=== PATIENT | female | born 1955 | race African-American/Black ===

== ENCOUNTER 2017-12-27 11:05 | Inpatient (IN) | payer MEDICARE ==
[~2017-12-27] VITALS: Ht 160 cm; Wt 70.3 kg
[2017-12-27 13:16] LABS: BASOPHILS % 0.6 % (0.0-2.0); EOSINOPHILS % 0.1 % (0.0-5.0); HEMATOCRIT. 23.9 % (36.0-48.0); HEMOGLOBIN. 7.4 g/dL (12.0-16.0); LYMPHOCYTES % 18.5 % (20.0-50.0); MEAN CORPUSCULAR HEMOGLOBIN 23.8 pg (28.0-32.0); MEAN CORPUSCULAR VOLUME 77.4 fL (81.0-99.0); MEAN PLATELET VOLUME 7.5 fl (7.4-10.4); MONOCYTES % 11.7 % (2.0-8.0); NEUTROPHILS % 69.1 % (40.0-76.0); PLATELET 325 x1000/uL (130-400); RED BLOOD CELL COUNT 3.09 mill/uL (4.2-5.4); RED CELL DISTRIBUTION WIDTH 20.3 % (11.6-14.6)
[2017-12-27 13:20] LABS: INR 1.1; PROTHROMBIN TIME 11.6 sec (9.4-11.6)
[2017-12-27 13:24] LABS: CHLORIDE 96 mEq/L (98-107)
[2017-12-27 13:30] LABS: TROPONIN I 0.04 ng/mL (0.00-0.04)
[2017-12-27] MEDS ORDERED: HYDROCODONE/ACETAMINOPHEN 5/325MG TABLET PO PRN (14:30)
[2017-12-27] MEDS ORDERED: CLONIDINE 0.1MG TABLET PO PRN (14:30)
[2017-12-27] MEDS ORDERED: IPRATROPIUM/ALBUTEROL 0.5-3(2.5)MG/3ML NEB HHN PRN (14:30)
[2017-12-27] MEDS ORDERED: DIPHENHYDRAMINE 50MG/ML VIAL IV PRN (14:30)
[2017-12-27 16:00] VITALS: BP 170/82
[2017-12-27] MEDS ORDERED: NIFEDIPINE XL 30MG TAB PO SCH (17:00)
[2017-12-27] MEDS ORDERED: ASPIRIN 81MG TABLET PO NR (17:15)
[2017-12-27] MEDS: PREDNISONE 20MG TABLET PO SCH ×2 (17:15→18:19)
[2017-12-27 17:17] VITALS: BP 169/90
[2017-12-27] MEDS: SEVELAMER CARBONATE 800 MG TABLET PO SCH (18:20)
[2017-12-27] MEDS ORDERED: ACETAMINOPHEN 325MG TABLET PO PRN (20:15)
[2017-12-27 20:38] VITALS: BP 187/89
[2017-12-27] MEDS ORDERED: EPOETIN ALFA 10000UNITS/ML VIAL SUBCUT SCH (21:00)
[2017-12-27 23:44] VITALS: BP 168/75
[2017-12-28] MEDS ORDERED: CARV12.545 PO (03:59)
[2017-12-28 04:00] VITALS: BP 168/82
[2017-12-28] MEDS ORDERED: P20 PO (04:08)
[2017-12-28] MEDS ORDERED: TORS20TA4 PO (04:08)
[2017-12-28] MEDS ORDERED: LOSA100T14 PO (04:08)
[2017-12-28] MEDS ORDERED: SEVE800T8 PO (04:08)
[2017-12-28] MEDS ORDERED: PROG1 PO (04:08)
[2017-12-28] MEDS ORDERED: OMEP20CA10 PO (04:08)
[2017-12-28] MEDS ORDERED: ASPI-1159 PO (04:08)
[2017-12-28 06:55] LABS: HEMATOCRIT 26.4 % (36.0-48.0); HEMOGLOBIN 8.3 g/dL (12.0-16.0); MEAN CORPUSCULAR HEMOGLOBIN 24.8 pg (28.0-32.0); MEAN CORPUSCULAR VOLUME 78.4 fL (81.0-99.0); PLATELET 310 x1000/uL (130-400); RED BLOOD CELL COUNT 3.37 mill/uL (4.2-5.4)
[2017-12-28] MEDS ORDERED: OMEPRAZOLE 20MG CAPSULE EXTENDED RELEASE PO SCH (07:40)
[2017-12-28 08:00] VITALS: BP 164/89
[2017-12-28 08:44] LABS: TROPONIN I 0.04 ng/mL (0.00-0.04)
[2017-12-28] MEDS ORDERED: LOSARTAN POTASSIUM 100 MG TABLET PO SCH (09:00)
[2017-12-28] MEDS ORDERED: TACROLIMUS 1MG CAPSULE PO SCH (09:00)
[2017-12-28] MEDS ORDERED: FOLIC ACID/VITAMIN B COMP W-C TABLET PO SCH (09:00)
[2017-12-28] MEDS ORDERED: CARVEDILOL 12.5MG TABLET PO SCH (09:00)
[2017-12-28] MEDS ORDERED: CHOLECALCIFEROL (D3) 1000 UNIT TABLET PO SCH (09:00)
[2017-12-28] MEDS: SEVELAMER CARBONATE 800 MG TABLET PO SCH ×2 (09:18→13:46)
[2017-12-28] MEDS ORDERED: PREDNISONE 20MG TABLET PO SCH (11:15)
[2017-12-28 12:00] VITALS: BP 154/79
[2017-12-28 16:00] VITALS: BP 150/77
[2017-12-29] MEDS ORDERED: PARICALCITOL 5 MCG/ML 1ML IV SCH (09:00)
== END 2017-12-28 16:53 | disposition home or self-care (01) | DRG 291 ==
LOC: ER 12:30 → 7WST 14:19 → EDBEDREQTM 14:21 → EDBEDREQ 14:21 → ENRESERV 16:06 → CANRESERV 16:08
PROVIDERS: ADMIT Internal Medicine; ATTEND Internal Medicine
PROC: 30233N1 Transfusion of Nonautologous Red Blood Cells into Peripheral Vein, Percutaneous Approach (ICD-10-PCS; principal; 2017-12-27)
PROC: 5A1D70Z Performance of Urinary Filtration, Intermittent, Less than 6 Hours Per Day (ICD-10-PCS; 2017-12-27)
PROC: 5A1D70Z Performance of Urinary Filtration, Intermittent, Less than 6 Hours Per Day (ICD-10-PCS; 2017-12-28)
DX: I13.2 Hypertensive heart and chronic kidney disease with heart failure and with stage 5 chronic kidney disease, or end stage renal disease (principal); N18.6 End stage renal disease; I31.3 Pericardial effusion (noninflammatory); N25.81 Secondary hyperparathyroidism of renal origin; Z94.0 Kidney transplant status; I50.41 Acute combined systolic (congestive) and diastolic (congestive) heart failure; D63.8 Anemia in other chronic diseases classified elsewhere; E55.9 Vitamin D deficiency, unspecified; E61.1 Iron deficiency; Z80.0 Family history of malignant neoplasm of digestive organs; Z82.49 Family history of ischemic heart disease and other diseases of the circulatory system; Z83.2 Family history of diseases of the blood and blood-forming organs and certain disorders involving the immune mechanism; Z87.442 Personal history of urinary calculi; Z99.2 Dependence on renal dialysis
CPT/HCPCS: 36415; 71045; 80048; 80053; 82306; 82728; 83010; 83540; 83550; 83605; 83880; 84100; 84443; 84484; 85025; 85027; 85610; 85651; 86038; 86850; 86900; 86920; 87040; 93005; 93306; 99285; J0885; J7030; J7507; J7512; P9016

== ENCOUNTER 2018-01-03 08:08 | Inpatient (IN) | payer MEDICARE ==
[~2018-01-03] VITALS: Ht 157.5 cm; Wt 65.8 kg
[2018-01-03] VITALS (16 sets, daily range): BP systolic 62–154; BP diastolic 37–72
[~2018-01-03 08:08] MED LIST: ASPI-1159 PO; CARV12.545 PO; LOSA100T14 PO; OMEP20CA10 PO; P20 PO; PROG1 PO; SEVE800T8 PO; TORS20TA4 PO
[2018-01-03 09:36] LABS: BASOPHILS % 0.2 % (0.0-2.0); HEMATOCRIT. 24.3 % (36.0-48.0); HEMOGLOBIN. 7.6 g/dL (12.0-16.0); LYMPHOCYTES % 12.3 % (20.0-50.0); MEAN CORPUSCULAR HEMOGLOBIN 24.8 pg (28.0-32.0); MEAN CORPUSCULAR VOLUME 78.9 fL (81.0-99.0); MEAN PLATELET VOLUME 7.9 fl (7.4-10.4); MONOCYTES % 6.7 % (2.0-8.0); NEUTROPHILS % 80.8 % (40.0-76.0); PLATELET 298 x1000/uL (130-400); RED BLOOD CELL COUNT 3.08 mill/uL (4.2-5.4); RED CELL DISTRIBUTION WIDTH 19.4 % (11.6-14.6)
[2018-01-03 09:46] LABS: INR 1.4; PROTHROMBIN TIME 14.5 sec (9.4-11.6)
[2018-01-03 09:49] LABS: CHLORIDE 93 mEq/L (98-107)
[2018-01-03] MEDS ORDERED: SODIUM CHLORIDE 0.9% 1,000 ML IV ONE ×2 (10:33→16:10)
[2018-01-03] MEDS ORDERED: VANCOMYCIN 1 G PREMIX 200 ML IV ONE (11:15)
[2018-01-03] MEDS ORDERED: PIPERACILLIN/TAZ 3.375G PREMIX 50 ML IV ONE (11:15)
[2018-01-03] MEDS ORDERED: DEXTROSE 50% WATER 50ML SYRINGE IV ONE (14:35)
[2018-01-03] MEDS ORDERED: SODIUM BICARBONATE 7.5% 0.9 MEQ/ML 50ML SYR IV ONE (14:35)
[2018-01-03] MEDS ORDERED: CALCIUM CHLORIDE 1GM/10ML SYR IV ONE (14:35)
[2018-01-03] MEDS ORDERED: EPINEPHRINE 0.1MG/ML (1:10,000) 10ML SYR ONE (14:35)
[2018-01-03 14:58] LABS: HEPATITIS B SURFACE ANTIGEN NEGATIVE
[2018-01-03 15:28] LABS: HEPATITIS A AB IGM NEGATIVE (NEGATIVE)
[2018-01-03] MEDS ORDERED: ONDANSETRON HCL 4MG/2ML VIAL IV PRN (17:15)
[2018-01-03] MEDS ORDERED: PANTOPRAZOLE SODIUM 40 MG/VIAL IV SCH (17:15)
[2018-01-03] MEDS ORDERED: METHYLPREDNISOLONE SOD SUCC 40 MG/ML VIAL IV NR (17:15)
[2018-01-03 18:34] LABS: BG BASE EXCESS -6.9 mmol/L (-2.0-2.0); BG CARBOXYHEMOGLOBIN 0.5 % (0.5-1.5); BG DEOXYHEMOGLOBIN 2.7 % (0.0-5.0); BG FRACTION INSPIRED OXYGEN 21; BG HCO3 ACT 15.7 mmol/L (22.0-26.0); BG METHEMOGLOBIN 0.4 % (0.0-1.5); BG OXYGEN SATURATION 97.3 % (92.0-98.5); BG OXYHEMOGLOBIN 96.4 % (94.0-97.0); BG PCO2 21.5 mmHg (35.0-45.0); BG PO2 101.7 mmHg (75.0-100.0); BG SAMPLE SITE RIGHT RADIAL; BG TOTAL HEMOGLOBIN 7.4 g/dL (12.0-18.0); BG VENT MODE ROOM AIR
[2018-01-03] MEDS ORDERED: PIPERACILLIN/TAZ 3.375G PREMIX 50 ML IV SCH (19:00)
[2018-01-03] MEDS: MORPHINE SULFATE 4 MG/ML CPJ (NOT FOR IM USE) IV PRN (19:38)
[2018-01-03] MEDS ORDERED: SEVELAMER CARBONATE 800 MG TABLET PO SCH (21:00)
[2018-01-03] MEDS ORDERED: PIPERACILLIN/TAZ 2.25G PREMIX 50 ML IV SCH (21:00)
[2018-01-03] MEDS ORDERED: ETOMIDATE 2MG/ML 10ML VIAL IV ONE (21:00)
[2018-01-03] MEDS ORDERED: EPOETIN ALFA 10000UNITS/ML VIAL SUBCUT SCH (21:00)
[2018-01-03] MEDS ORDERED: VECURONIUM BROMIDE 10 MG/VIAL IV ONE (21:00)
[2018-01-03] MEDS ORDERED: PREDNISONE 20MG TABLET PO SCH (21:00)
[2018-01-03 21:02] LABS: BG BASE EXCESS -7.3 mmol/L (-2.0-2.0); BG CARBOXYHEMOGLOBIN 0.5 % (0.5-1.5); BG DEOXYHEMOGLOBIN 0.3 % (0.0-5.0); BG FRACTION INSPIRED OXYGEN 100; BG HCO3 ACT 16.4 mmol/L (22.0-26.0); BG METHEMOGLOBIN 0.4 % (0.0-1.5); BG OXYGEN SATURATION 99.7 % (92.0-98.5); BG OXYHEMOGLOBIN 98.8 % (94.0-97.0); BG PCO2 26.3 mmHg (35.0-45.0); BG PH 7.414 (7.350-7.450); BG PO2 475.1 mmHg (75.0-100.0); BG SAMPLE SITE RIGHT BRACHIAL; BG TIDAL VOLUME(mL) 550 mL; BG TOTAL HEMOGLOBIN 6.8 g/dL (12.0-18.0); BG VENT MODE VENT - A/C; BG VENT RATE 16 set
[2018-01-03] MEDS: PIPERACILLIN/TAZOBACTAM 2.25 G in SODIUM CHLORIDE 0.9% 50 ML IV SCH (22:16)
[2018-01-03] MEDS ORDERED: NOREPINEPHRINE 8 MG in SODIUM CHLORIDE 0.9% 250 ML IV PRN (22:30)
[2018-01-03] MEDS ORDERED: ASPIRIN 81MG EC TABLET PO SCH (22:45)
[2018-01-03] MEDS ORDERED: PROPOFOL 10MG/ML 100ML 100 ML IV PRN (22:45)
[2018-01-03] MEDS ORDERED: CARVEDILOL 12.5MG TABLET PO SCH (22:45)
[2018-01-03] MEDS: NOREPINEPHRINE 8 MG in SODIUM CHLORIDE 0.9% 242 ML IV PRN (22:59)
[2018-01-03] MEDS ORDERED: DOPAMINE 400MG PREMIX 250 ML IV PRN (23:30)
[2018-01-04] VITALS (37 sets, daily range): BP systolic 58–152; BP diastolic 22–86
[2018-01-04] MEDS: MORPHINE SULFATE 4 MG/ML CPJ (NOT FOR IM USE) IV PRN (03:55)
[2018-01-04] MEDS: NOREPINEPHRINE 8 MG in SODIUM CHLORIDE 0.9% 242 ML IV PRN (04:19)
[2018-01-04] MEDS: PIPERACILLIN/TAZOBACTAM 2.25 G in SODIUM CHLORIDE 0.9% 50 ML IV SCH (04:28)
[2018-01-04] MEDS ORDERED: VANCOMYCIN 500 MG PREMIX 100 ML IV NR (06:00)
[2018-01-04 07:10] LABS: PHOSPHORUS 7.3 mg/dL (2.5-4.9)
[2018-01-04] MEDS ORDERED: DEXTROSE 50% WATER 50ML SYRINGE IV PRN (07:30)
[2018-01-04] MEDS ORDERED: BLOOD SUGAR DIAGNOSTIC STRIP TEST SCH (07:40)
[2018-01-04] MEDS ORDERED: INSULIN LISPRO 100 UNITS/ML SUBCUT SCH (07:41)
[2018-01-04 07:44] LABS: BASOPHILS % 0.8 % (0.0-2.0); EOSINOPHILS % 0.1 % (0.0-5.0); HEMATOCRIT. 27.6 % (36.0-48.0); HEMOGLOBIN. 8.6 g/dL (12.0-16.0); LYMPHOCYTES % 12.5 % (20.0-50.0); MEAN CORPUSCULAR HEMOGLOBIN 25.8 pg (28.0-32.0); MEAN CORPUSCULAR VOLUME 82.7 fL (81.0-99.0); MEAN PLATELET VOLUME 8.5 fl (7.4-10.4); MONOCYTES % 2.9 % (2.0-8.0); NEUTROPHILS % 83.7 % (40.0-76.0); PLATELET 246 x1000/uL (130-400); RED BLOOD CELL COUNT 3.33 mill/uL (4.2-5.4); RED CELL DISTRIBUTION WIDTH 18.2 % (11.6-14.6)
[2018-01-04] MEDS ORDERED: EPINEPHRINE 0.1MG/ML (1:10,000) 10ML SYR ONE (08:04)
[2018-01-04 08:35] LABS: CHLORIDE 97 mEq/L (98-107)
[2018-01-04] MEDS ORDERED: TACROLIMUS 1MG CAPSULE PO SCH (09:00)
[2018-01-04] MEDS ORDERED: OMEPRAZOLE 20MG CAPSULE EXTENDED RELEASE PO SCH (09:00)
[2018-01-04] MEDS ORDERED: LOSARTAN POTASSIUM 100 MG TABLET PO SCH (09:00)
== END 2018-01-04 07:59 | disposition expired | DRG 871 ==
LOC: ER 08:41 → 5EST 11:12 → EDBEDREQ 11:32 → ENRESERV 15:25 → CANRESERV 15:25 → EDBEDREQSVC 16:04 → ENRESERV 16:58 → CVICU 22:53
PROVIDERS: ADMIT Internal Medicine; ATTEND Internal Medicine
PROC: 5A12012 Performance of Cardiac Output, Single, Manual (ICD-10-PCS; 2018-01-03)
PROC: 5A1935Z Respiratory Ventilation, Less than 24 Consecutive Hours (ICD-10-PCS; 2018-01-03)
PROC: 0BH17EZ Insertion of Endotracheal Airway into Trachea, Via Natural or Artificial Opening (ICD-10-PCS; 2018-01-03)
PROC: 5A1D70Z Performance of Urinary Filtration, Intermittent, Less than 6 Hours Per Day (ICD-10-PCS; 2018-01-03)
PROC: 30233N1 Transfusion of Nonautologous Red Blood Cells into Peripheral Vein, Percutaneous Approach (ICD-10-PCS; principal; 2018-01-04)
DX: A41.9 Sepsis, unspecified organism (principal); R65.21 Severe sepsis with septic shock; J96.00 Acute respiratory failure, unspecified whether with hypoxia or hypercapnia; K72.00 Acute and subacute hepatic failure without coma; I46.9 Cardiac arrest, cause unspecified; E43 Unspecified severe protein-calorie malnutrition; E46 Unspecified protein-calorie malnutrition; T86.12 Kidney transplant failure; D68.9 Coagulation defect, unspecified; N18.6 End stage renal disease; I13.2 Hypertensive heart and chronic kidney disease with heart failure and with stage 5 chronic kidney disease, or end stage renal disease; I31.3 Pericardial effusion (noninflammatory); E87.2 Acidosis; E87.1 Hypo-osmolality and hyponatremia; I50.30 Unspecified diastolic (congestive) heart failure; M10.9 Gout, unspecified; K64.9 Unspecified hemorrhoids; I73.9 Peripheral vascular disease, unspecified; E21.1 Secondary hyperparathyroidism, not elsewhere classified; Z80.0 Family history of malignant neoplasm of digestive organs; E83.39 Other disorders of phosphorus metabolism; D63.8 Anemia in other chronic diseases classified elsewhere; E16.2 Hypoglycemia, unspecified; E87.5 Hyperkalemia; E74.39 Other disorders of intestinal carbohydrate absorption; Z79.82 Long term (current) use of aspirin; Z83.2 Family history of diseases of the blood and blood-forming organs and certain disorders involving the immune mechanism; Z87.442 Personal history of urinary calculi; Z82.49 Family history of ischemic heart disease and other diseases of the circulatory system; Z79.899 Other long term (current) drug therapy; Z88.8 Allergy status to other drugs, medicaments and biological substances; Z99.2 Dependence on renal dialysis; Z68.26 Body mass index [BMI] 26.0-26.9, adult
CPT/HCPCS: 31500; 36415; 36600; 71045; 74176; 80053; 82375; 82805; 82962; 83605; 83690; 83735; 84100; 84478; 85025; 85610; 86644; 86645; 86709; 86803; 86850; 86900; 86920; 87040; 87340; 92950; 93005; 94002; 96365; 96366; 96368; 99285; J0171; J0885; J1265; J2270; J2543; J2704; J3370; J3490; J7030; J7050; J7060; P9016